=== PATIENT | male | born 1935 | race Caucasian/White ===

== ENCOUNTER 2016-11-18 10:38 | Outpatient (CLI) | payer MEDICARE, OTHER ==
[2016-11-18 12:21] LABS: #Eosinphils 0.2 thou/uL (0.0-0.7); #Lymphocytes 1.6 thou/uL (1.20-3.40); #Monocytes 0.7 thou/uL (0.11-0.59); #Neutrophils 2.3 thou/uL (1.40-6.50); %Eosinophils 3.8 % (0.0-10.0); %Lymphocytes 33.4 % (21.0-51.0); %Monocytes 13.6 % (0.0-10.0); Mean Platelet Volume 8.7 fL (7.4-10.4); Red Blood Cell (RBC) Count 4.43 mill/uL (4.70-6.10); White Blood Cell (WBC) Count 4.8 thou/uL (4.8-10.8)
[2016-11-18 12:48] LABS: Hemoglobin A1c 8.7 % (4.0-6.0)
[2016-11-18 12:56] LABS: ALT (SGPT) 77 U/L (0-55); AST (SGOT) 43 U/L (5-34); Alkaline Phosphatase 47 U/L (40-150); Anion Gap 14 mmol/L (10-20); BUN (Urea Nitrogen) 15 mg/dL (8.4-25.7); Bilirubin, Total 0.8 mg/dL (0.2-1.2); Calc. Creatinine Clearance 0 mL/min (70-130); Calcium 9.9 mg/dL (7.8-10.44); Carbon Dioxide 29 mmol/L (23-31); Chloride 100 mmol/L (98-107); Estimated GFR-MDRD 86; Globulin 2.5 g/dL (2.4-3.5); LDL Cholesterol, Calculated 31 mg/dL; Protein, Total 6.9 g/dL (5.8-8.1)
== END 2016-11-18 10:39 | disposition home or self-care (01) ==
LOC: NAVSJIPCSP 10:38
PROVIDERS: ATTEND Internal Medicine
DX: I10 Essential (primary) hypertension (principal); E11.9 Type 2 diabetes mellitus without complications; E78.5 Hyperlipidemia, unspecified
CPT/HCPCS: 36415; 80053; 80061; 83036; 85025

== ENCOUNTER 2017-01-01 11:26 | Outpatient (CLI) | payer MEDICARE, OTHER | END 2017-01-01 11:27 | disposition home or self-care (01) | LOC: NAVSJIPCSP 11:26 | PROVIDERS: ATTEND Internal Medicine | DX: Z12.5 Encounter for screening for malignant neoplasm of prostate (principal); I10 Essential (primary) hypertension | CPT/HCPCS: 36415; G0103 ==

== ENCOUNTER 2017-02-06 08:11 | Outpatient (CLI) | payer MEDICARE, OTHER ==
[2017-02-06 12:30] LABS: ALT (SGPT) 42 U/L (0-55); AST (SGOT) 32 U/L (5-34); Albumin 4.1 g/dL (3.4-4.8); Alkaline Phosphatase 43 U/L (40-150); Anion Gap 16 mmol/L (10-20); BUN (Urea Nitrogen) 24 mg/dL (8.4-25.7); Bilirubin, Total 0.4 mg/dL (0.2-1.2); Calc. Creatinine Clearance 0 mL/min (70-130); Calcium 9.6 mg/dL (7.8-10.44); Carbon Dioxide 27 mmol/L (23-31); Cardiac Risk 2.7 (Less than 4.5); Chloride 104 mmol/L (98-107); Cholesterol 93 mg/dL (< 200 Desired); Estimated GFR-MDRD 82; Globulin 2.5 g/dL (2.4-3.5); Glucose 199 mg/dL (83-110); HDL Cholesterol 34 mg/dL (>60 Neg Risk); LDL Cholesterol, Calculated 27 mg/dL; Potassium 4.6 mmol/L (3.5-5.1); Protein, Total 6.6 g/dL (5.8-8.1); Sodium 142 mmol/L (136-145); Triglycerides 159 mg/dL (Less than 150)
[2017-02-06 12:54] LABS: Hemoglobin 13.8 g/dL (14.0-18.0); Hemoglobin A1c 8.1 % (4.0-6.0); MDiff Complete? YES; Mean Corpuscular HGB CONC 33.5 g/dL (32.0-36.0); Mean Corpuscular Hemoglobin 34.9 pg (27.0-31.0); Mean Platelet Volume 7.8 fL (7.4-10.4); Platelet Count 183 thou/uL (130-400); RBC Distribution Width 11.7 % (11.5-14.5); Red Blood Cell (RBC) Count 3.95 mill/uL (4.70-6.10); White Blood Cell (WBC) Count 4.3 thou/uL (4.8-10.8)
[2017-02-06 12:55] LABS: Anisocytosis SLIGHT = 6-15 cells (100X) (0-5/hpf); Eosinophils 3 % (0-10); Lymphocytes 18 % (21-51); Macrocytosis SLIGHT = 6-15 cells (100X) (0-5/hpf); Monocytes 16 % (0-10); Neutrophil 63 % (42-75); PLT Morphology Comment Appears Adequate
== END 2017-02-06 08:12 ==
LOC: NAVSJIPCSP 08:11
PROVIDERS: ATTEND Internal Medicine
DX: E11.9 Type 2 diabetes mellitus without complications (principal); I10 Essential (primary) hypertension; Z98.61 Coronary angioplasty status
CPT/HCPCS: 36415; 80053; 80061; 83036; 83880; 85025

== ENCOUNTER 2017-05-28 10:45 | Outpatient (CLI) | payer MEDICARE, OTHER ==
[2017-05-28 12:49] LABS: Hemoglobin A1c 7.4 % (4.0-6.0)
== END 2017-05-28 10:46 | disposition home or self-care (01) ==
LOC: NAVSJIPCSP 10:45
PROVIDERS: ATTEND Internal Medicine
DX: E11.9 Type 2 diabetes mellitus without complications (principal)
CPT/HCPCS: 36415; 83036

== ENCOUNTER 2017-10-20 11:05 | Outpatient (CLI) | payer MEDICARE, OTHER ==
--- NOTE | 2017-10-20 11:56 | RAD ---
CHEST TWO VIEWS: Comparison: 08-17-17 History: Bronchitis. FINDINGS: Normal cardiac silhouette. The pulmonary vessels and hilum are normal. No mass. No consolidation. Sta ble blunting of the left costophrenic angle. No pneumothorax or osseous abnormality. IMPRESSION: No acute cardiopulmonary process. POS: [facility]
== END 2017-10-20 11:06 | disposition home or self-care (01) ==
LOC: NAV RAD 11:05
PROVIDERS: ATTEND Internal Medicine
DX: J40 Bronchitis, not specified as acute or chronic (principal)
CPT/HCPCS: 71020

== ENCOUNTER 2017-10-28 09:29 | Outpatient (CLI) | payer MEDICARE, OTHER ==
[2017-10-28 09:41] LABS: Bilirubin Negative (Negative); Blood, Urine Negative (Negative); Clarity Clear (Clear); Glucose, Urine (Dipstick) Negative (Negative); Leukocyte Negative (Negative); Nitrite Negative (Negative); Protein, Urine (Dipstick) Negative (Neg-Trace); Specific Gravity, Urine 1.025 (1.005-1.030); Urobilinogen 0.2 mg/dL (0.2-1.0); pH, Urine 5.5 (5.0-9.0)
[2017-10-28 09:58] LABS: ALT (SGPT) 100 U/L (8-55); AST (SGOT) 53 U/L (5-34); Albumin 4.2 g/dL (3.4-4.8); Alkaline Phosphatase 54 U/L (40-150); Anion Gap 16 mmol/L (10-20); BUN (Urea Nitrogen) 16 mg/dL (8.4-25.7); Bilirubin, Total 0.6 mg/dL (0.2-1.2); Calc. Creatinine Clearance 0 mL/min (70-130); Calcium 9.9 mg/dL (7.8-10.44); Carbon Dioxide 28 mmol/L (23-31); Chloride 99 mmol/L (98-107); Estimated GFR-MDRD 88; Globulin 2.6 g/dL (2.4-3.5); Glucose 171 mg/dL (83-110); Potassium 4.3 mmol/L (3.5-5.1); Protein, Total 6.8 g/dL (5.8-8.1); Sodium 139 mmol/L (136-145)
[2017-10-28 10:19] LABS: Hemoglobin 14.4 g/dL (14.0-18.0); MDiff Complete? YES; Mean Corpuscular HGB CONC 35.1 g/dL (32.0-36.0); Mean Corpuscular Hemoglobin 33.8 pg (27.0-31.0); Mean Corpuscular Volume 96.2 fl (80.0-94.0); Mean Platelet Volume 9.9 fL (7.4-10.4); Platelet Count 155 thou/uL (130-400); RBC Distribution Width 11.5 % (11.5-14.5); Red Blood Cell (RBC) Count 4.27 mill/uL (4.70-6.10); White Blood Cell (WBC) Count 4.7 thou/uL (4.8-10.8)
[2017-10-28 10:20] LABS: Eosinophils 1 % (0-10); Lymphocytes 25 % (21-51); Monocytes 17 % (0-10); Neutrophil 57 % (42-75); PLT Morphology Comment Appears Adequate
[2017-10-28 18:21] LABS: Hemoglobin A1c 7.6 % (4.0-6.0)
== END 2017-10-28 09:30 | disposition home or self-care (01) ==
LOC: NAVSJIPCSP 09:29
PROVIDERS: ATTEND Internal Medicine
DX: E11.9 Type 2 diabetes mellitus without complications (principal)
CPT/HCPCS: 36415; 83036

== ENCOUNTER 2017-10-28 16:57 | Outpatient (CLI) | payer MEDICARE, OTHER ==
--- NOTE | 2017-10-28 19:32 | CT ---
CT BRAIN 10/28/17 PROVIDED CLINICAL HISTORY: Somnolence. FINDINGS: The ventricular system appears normal in size and morphology. There is no evidence for intracranial h emorrhage or mass effect. The extracranial soft tissues and osseous structures demonstrate no acute a bnormality. 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 Age appropriate cerebral volume loss is seen. IMPRESSION: No evidence for intracranial hemorrhage or mass effect. POS: [facility]
== END 2017-10-28 16:58 | disposition home or self-care (01) ==
LOC: NAV CT 16:57
PROVIDERS: ATTEND Internal Medicine
DX: R40.0 Somnolence (principal)
CPT/HCPCS: 36415; 70450; 83036

== ENCOUNTER 2024-12-06 14:52 | Emergency (ER) | payer MEDICARE, OTHER ==
[2024-12-06] MEDS ORDERED: Bacitracin 1 PK ONE (17:35)
[2024-12-06] MEDS ORDERED: Boostrix 0.5 ML (Tdap) VIAL (>/=7 yrs of age) ONE (17:36)
[2024-12-06] MEDS ORDERED: Acetaminophen 500 MG TAB ONE (17:44)
== END 2024-12-06 19:19 | disposition home or self-care (01) ==
LOC: NAV ERS 14:52
DX: S32.028A Other fracture of second lumbar vertebra, initial encounter for closed fracture (principal); S00.93XA Contusion of unspecified part of head, initial encounter; S00.01XA Abrasion of scalp, initial encounter; E11.9 Type 2 diabetes mellitus without complications; E78.00 Pure hypercholesterolemia, unspecified; I10 Essential (primary) hypertension; Z79.84 Long term (current) use of oral hypoglycemic drugs; Z79.899 Other long term (current) drug therapy; Z79.85 Long-term (current) use of injectable non-insulin antidiabetic drugs; W10.1XXA Fall (on)(from) sidewalk curb, initial encounter
CPT/HCPCS: 70450; 72131; 90471; 90715

== ENCOUNTER 2025-06-08 09:25 | Emergency (ER) | payer MEDICARE, OTHER | END 2025-06-08 10:28 | disposition home or self-care (01) | LOC: NAV ERS 09:25 | DX: M25.512 Pain in left shoulder (principal); E11.9 Type 2 diabetes mellitus without complications; E78.00 Pure hypercholesterolemia, unspecified; I10 Essential (primary) hypertension; I25.2 Old myocardial infarction; Z79.4 Long term (current) use of insulin; Z79.82 Long term (current) use of aspirin; Z79.84 Long term (current) use of oral hypoglycemic drugs; Z79.899 Other long term (current) drug therapy | CPT/HCPCS: 93005 ==